=== PATIENT | female | born 1975 | race Native Hawaiian/Other Pacific Islander ===

== ENCOUNTER 2017-02-03 10:31 | Outpatient (CLI) | payer OTHER | END 2017-02-03 21:34 | disposition home or self-care (01) | LOC: INF 10:31 | PROC: 30233N1 Transfusion of Nonautologous Red Blood Cells into Peripheral Vein, Percutaneous Approach (ICD-10-PCS; principal; 2017-02-03) | DX: D64.89 Other specified anemias (principal) | CPT/HCPCS: 36430; 85014; 85018; 86850; 86900; 86901; 86922; P9016 ==

== ENCOUNTER 2018-01-22 15:36 | Emergency (ER) | payer BC ==
[~2018-01-22] VITALS: Ht 170.2 cm; Wt 61.2 kg
[2018-01-22 16:22] LABS: PLATELET COUNT 344 K/uL (152-353)
[2018-01-22 16:32] LABS: POTASSIUM 3.7 mmol/L (3.6-5.2)
[2018-01-22 18:05] VITALS: BP 123/69; TEMP 97.7
== END 2018-01-22 18:05 | disposition home or self-care (01) ==
LOC: ED 15:36
DX: M51.36 Other intervertebral disc degeneration, lumbar region (principal); W51.XXXA Accidental striking against or bumped into by another person, initial encounter
CPT/HCPCS: 36415; 80053; 80307; 81000; 85027; 96374; 96375; 99284; J1885; J2550

== ENCOUNTER 2018-07-04 17:32 | Inpatient (IN) | payer BC ==
[2018-07-04] VITALS (14 sets, daily range): BP systolic 91–135; BP diastolic 45–67; TEMP 97.9–98.5; Ht 162.6 cm; Wt 61.2 kg
[~2018-07-04] VITALS: Ht 162.6 cm; Wt 61.2 kg
[2018-07-04 18:35] LABS: PLATELET COUNT 538 K/uL (152-353)
[2018-07-04 18:52] LABS: POTASSIUM 2.8 mmol/L (3.6-5.2)
[2018-07-05] VITALS (13 sets, daily range): BP systolic 88–128; BP diastolic 35–74; TEMP 97.5–98.9
[2018-07-05 06:52] LABS: PLATELET COUNT 438 K/uL (152-353)
[2018-07-05 07:02] LABS: POTASSIUM 3.4 mmol/L (3.6-5.2)
[2018-07-05] MEDS ORDERED: PHENTERMINE37.5 MG PO (10:06)
[2018-07-05] MEDS ORDERED: IBU800 MG PO (10:11)
[2018-07-05] MEDS ORDERED: RANI150T78 PO (10:15)
[2018-07-05] MEDS ORDERED: CYCL10TA35 PO (10:17)
[2018-07-05] MEDS ORDERED: HYDR10TA47A PO (10:19)
[2018-07-06] VITALS: BP 109/65; TEMP 98.1
[2018-07-06 04:00] VITALS: BP 118/77; TEMP 98.4
[2018-07-06 08:00] VITALS: BP 99/4; BP 99/44; TEMP 97.5
[2018-07-06 08:49] LABS: POTASSIUM 3.5 mmol/L (3.6-5.2)
[2018-07-06 12:00] VITALS: BP 139/82; TEMP 97.8
[2018-07-06 14:37] LABS: PLATELET COUNT 393 K/uL (152-353)
== END 2018-07-06 15:49 | disposition home or self-care (01) | DRG 101 ==
LOC: ED 17:32 → ICU 20:35 → MED/SURG 07-05 11:00
PROVIDERS: Internal Medicine; ADMIT Emergency Medicine
PROC: 30233N1 Transfusion of Nonautologous Red Blood Cells into Peripheral Vein, Percutaneous Approach (ICD-10-PCS; principal; 2018-07-05)
PROC: 30233N1 Transfusion of Nonautologous Red Blood Cells into Peripheral Vein, Percutaneous Approach (ICD-10-PCS; 2018-07-06)
DX: G40.89 Other seizures (principal); E87.1 Hypo-osmolality and hyponatremia; N39.0 Urinary tract infection, site not specified; E87.6 Hypokalemia; D64.89 Other specified anemias; M54.89 Other dorsalgia; B96.20 Unspecified Escherichia coli [E. coli] as the cause of diseases classified elsewhere
CPT/HCPCS: 36415; 51702; 80048; 80053; 80307; 81000; 81025; 82728; 83540; 83605; 85027; 86850; 86900; 86901; 86922; 87077; 87086; 87088; 87186; 93005; 96365; 96375; 96376; 99285; J0696; J1940; J2060; P9016

== ENCOUNTER 2018-09-21 13:26 | Outpatient (CLI) | payer BC, OTHER ==
[~2018-09-21 13:26] MED LIST: CYCL10TA35 PO; HYDR10TA47A PO; IBU800 MG PO; PHENTERMINE37.5 MG PO; RANI150T78 PO
[2018-09-21 13:52] LABS: PLATELET COUNT 276 K/uL (152-353)
[2018-09-21 14:21] LABS: POTASSIUM 2.9 mmol/L (3.6-5.2)
== END 2018-09-21 19:15 | disposition home or self-care (01) ==
LOC: LABW 13:26
PROVIDERS: Nurse Practitioner
DX: G40.909 Epilepsy, unspecified, not intractable, without status epilepticus (principal); R55 Syncope and collapse; E78.00 Pure hypercholesterolemia, unspecified; E55.9 Vitamin D deficiency, unspecified; D50.0 Iron deficiency anemia secondary to blood loss (chronic); R53.82 Chronic fatigue, unspecified
CPT/HCPCS: 36415; 80053; 80061; 82306; 82607; 83036; 83540; 84443; 85027

== ENCOUNTER 2018-12-11 14:14 | Outpatient (CLI) | payer BC, OTHER ==
[2018-12-11 14:41] LABS: POTASSIUM 4.1 mmol/L (3.6-5.2)
== END 2018-12-11 23:21 | disposition home or self-care (01) ==
LOC: LABW 14:14
PROVIDERS: Nurse Practitioner
DX: E87.6 Hypokalemia (principal)
CPT/HCPCS: 36415; 80048

== ENCOUNTER 2019-03-11 12:18 | Outpatient (CLI) | payer BC, OTHER | END 2019-03-11 20:50 | disposition home or self-care (01) | LOC: RAD 12:18 | DX: M79.641 Pain in right hand (principal) ==

== ENCOUNTER 2021-08-17 10:01 | Emergency (ER) | payer BC ==
[~2021-08-17] VITALS: Ht 162.6 cm; Wt 98.9 kg
[2021-08-17 11:15] VITALS: BP 129/84; TEMP 98
== END 2021-08-17 11:15 | disposition home or self-care (01) ==
LOC: ED 10:01
DX: S70.02XA Contusion of left hip, initial encounter (principal); S80.02XA Contusion of left knee, initial encounter; W01.198A Fall on same level from slipping, tripping and stumbling with subsequent striking against other object, initial encounter; Y93.E5 Activity, floor mopping and cleaning; Y92.098 Other place in other non-institutional residence as the place of occurrence of the external cause
CPT/HCPCS: 96372; 99283; J2360

== ENCOUNTER 2022-08-09 08:12 | Emergency (ER) | payer BC ==
[~2022-08-09] VITALS: Ht 162.6 cm; Wt 104.3 kg
[2022-08-09 08:17] VITALS: BP 143/79; TEMP 97.7
== END 2022-08-09 10:00 | disposition home or self-care (01) ==
LOC: ED 08:12
PROC: 2W3SX1Z Immobilization of Right Foot using Splint (ICD-10-PCS; principal; 2022-08-09)
DX: S82.841A Displaced bimalleolar fracture of right lower leg, initial encounter for closed fracture (principal); W01.0XXA Fall on same level from slipping, tripping and stumbling without subsequent striking against object, initial encounter
CPT/HCPCS: 96372; 99283; J2270; J2405